=== PATIENT | male | born 1940 | race Caucasian/White ===

== ENCOUNTER 2017-04-02 13:55 | Emergency (ER) | payer OTHER ==
[~2017-04-02] VITALS: Ht 175.3 cm; Wt 76.0 kg
[~2017-04-02 13:55] MED LIST: ASPI-621 PO; GEMF600T3 PO; LISI40TA PO; METO50TA82 PO; SIMV80TA3 PO; TICA90TA PO
[2017-04-02] MEDS ORDERED: SODIUM CHLORIDE FLUSH 10ML SYR IVF ONE (14:30)
[2017-04-02] MEDS ORDERED: SODIUM CHLORIDE 0.9% 1,000ML IVBOLUS ONE (14:30)
[2017-04-02 14:35] LABS: HEMATOCRIT 38.2 % (39.2-51.8); HEMOGLOBIN 12.8 g/dL (13.7-18.0); WHITE BLOOD COUNT 8.7 x10^3/uL (3.4-10)
[2017-04-02 14:41] LABS: BLOOD UREA NITROGEN 31 mg/dL (7-18)
[2017-04-02] MEDS ORDERED: LIDOCAINE 1%, 20ML ONE (17:22)
[2017-04-02] MEDS ORDERED: LIDOCAINE 1%, 20ML INFIL ONE (17:30)
[2017-04-02] MEDS ORDERED: BACITRACIN ZINC OINT 500U/GM, 0.9 GM ONE (17:40)
[2017-04-02 18:30] VITALS: BP 129/74
== END 2017-04-02 19:23 | disposition home or self-care (01) ==
LOC: MERGE 13:55 → ED 14:58
DX: S43.121A Dislocation of right acromioclavicular joint, 100%-200% displacement, initial encounter (principal); S01.01XA Laceration without foreign body of scalp, initial encounter; S16.1XXA Strain of muscle, fascia and tendon at neck level, initial encounter; W01.0XXA Fall on same level from slipping, tripping and stumbling without subsequent striking against object, initial encounter; Y93.89 Activity, other specified; Y92.009 Unspecified place in unspecified non-institutional (private) residence as the place of occurrence of the external cause; Y99.9 Unspecified external cause status
CPT/HCPCS: 12002; 29105; 36415; 70450; 71010; 72125; 73030; 73200; 80048; 82040; 85025; 96360; 99285; J7030

== ENCOUNTER 2017-04-10 09:48 | Emergency (ER) | payer OTHER ==
[~2017-04-10] VITALS: Ht 172.7 cm; Wt 74.5 kg
[2017-04-10 09:50] VITALS: BP 116/74
== END 2017-04-10 10:37 | disposition home or self-care (01) ==
LOC: ED 10:25
DX: S01.01XD Laceration without foreign body of scalp, subsequent encounter (principal); W11.XXXD Fall on and from ladder, subsequent encounter; Y92.89 Other specified places as the place of occurrence of the external cause; Y99.9 Unspecified external cause status
CPT/HCPCS: 99281

== ENCOUNTER → 2017-07-09 | Outpatient (CLI) | payer OTHER ==
[~2017-07-09] MED LIST changes: +REGADENOSON 0.4 MG/5 ML SYRINGE ONE
== END | disposition home or self-care (01) ==
LOC: CFH 12:37
PROVIDERS: ATTEND Internal Medicine Cardiovascular Disease
DX: I25.10 Atherosclerotic heart disease of native coronary artery without angina pectoris (principal)
CPT/HCPCS: 78452; 93017; A9502; J2785

== ENCOUNTER → 2017-09-05 | Outpatient (CLI) | payer OTHER ==
[~2017-09-05] MED LIST changes: -REGADENOSON 0.4 MG/5 ML SYRINGE ONE
== END ==
LOC: ROC 12:53
PROVIDERS: ATTEND Radiology Radiation Oncology
DX: Z08 Encounter for follow-up examination after completed treatment for malignant neoplasm (principal); C61 Malignant neoplasm of prostate; Z79.82 Long term (current) use of aspirin
CPT/HCPCS: 99212; G0463